=== PATIENT | female | born 1975 ===

== ENCOUNTER 2018-05-26 14:42 | Inpatient (IN) ==
[2018-05-26] MEDS ORDERED: ACETAMINOPHEN 325 MG TABLET PO PRN (17:57)
[2018-05-26] MEDS ORDERED: ONDANSETRON 4 MG/2 ML VIAL IV PRN (17:57)
[2018-05-26] MEDS ORDERED: DEXTROSE 50% 25 GM/50 ML VIAL IV PRN (17:59)
[2018-05-26] MEDS ORDERED: GLUCAGON 1 MG VIAL IM PRN (17:59)
[2018-05-26] MEDS: INSULIN REGULAR 100 UNIT/ML SUBCUT SCH (19:38)
[2018-05-26] MEDS: metroNIDAZOLE INJ 500 MG in PREMIX 1 EACH IV SCH (21:10)
[2018-05-26] MEDS: SODIUM CHLORIDE 0.9% 1,000 ML IV SCH (21:10)
[2018-05-26] MEDS: ATORVASTATIN 40 MG TABLET PO SCH (21:11)
[2018-05-26] MEDS: ENOXAPARIN 30 MG/0.3 ML SYRINGE SUBCUT SCH (21:19)
[2018-05-26 21:33] LABS: Neutrophils,Peritoneal Fluid 89 %
[2018-05-26 21:34] LABS: RBC,Peritoneal Fluid < 1 T/CUMM
[2018-05-26] MEDS: ceFAZolin 1,000 MG VIAL INTRAPERIT SCH (21:51)
[2018-05-27] MEDS: ceFAZolin 1,000 MG VIAL INTRAPERIT SCH ×2 (04:02→22:26)
[2018-05-27] MEDS: INSULIN REGULAR 100 UNIT/ML SUBCUT SCH ×4 (04:07→17:46)
[2018-05-27] MEDS: metroNIDAZOLE INJ 500 MG in PREMIX 1 EACH IV SCH ×3 (04:09→22:18)
[2018-05-27 04:38] LABS: Basophils % 0.3 % (0.0-0.8); Eosinophils # 0.2 10*3/uL (0.0-0.87); Eosinophils % 1.7 % (0.00-10.9); Hematocrit 28.8 VOL% (35.7-47.0); Hemoglobin 9.3 GM/DL (12.0-16.0); Immature Granulocytes % 0.6 %; Immature Granulocytes Absolute 0.06 #; Lymphocytes # 1.5 10*3/uL (1.4-4.0); Lymphocytes % 14.5 % (21.3-54.2); Mean Corpuscular HGB Conc 32.3 GM/DL (32-36); Mean Corpuscular Hemoglobin 29 PG (27-34); Mean Corpuscular Volume 91.1 FL (87-102); Mean Platelet Volume 8.9 FL (9.6-12.0); Monocytes # 0.5 10*3/uL (0.11-0.8); Monocytes % 4.8 % (1.7-12.7); Neutrophils # 8.3 10*3/uL (1.4-7.4); Neutrophils % 78.1 % (38.7-73.9); Platelet Count 282 T/CUMM (130-400); Red Blood Count 3.16 MC/CUMM (3.8-5.5); Red Cell Distribution Width 15.1 % (9.3-17.3); White Blood Count 10.6 T/CUMM (4-12)
[2018-05-27 06:00] LABS: Albumin 1.4 G/DL (3.4-5.0); Bilirubin,Total 0.6 MG/DL (0.2-1.0); Calcium 7.4 MG/DL (8.5-10.1); Osmolality,Calculated 283.8 MOS/KG (273-304); Potassium 3.3 MMOL/L (3.5-5.1); Total Protein 5.5 G/DL (6.4-8.3)
[2018-05-27] MEDS: SODIUM CHLORIDE 0.9% 1,000 ML IV SCH ×3 (06:30→22:18)
[2018-05-27] MEDS: CALCIUM ACETATE 667 MG CAPSULE PO SCH ×3 (09:16→17:45)
[2018-05-27] MEDS: CARVEDILOL 25 MG TABLET PO SCH (09:36)
[2018-05-27] MEDS: MORPHINE 4 MG/1 ML VIAL IV PRN ×2 (11:23→17:42)
[2018-05-27] MEDS: ISOSORBIDE MONONITRATE 30 MG TABLET PO SCH (13:07)
[2018-05-27] MEDS: INSULIN GLARGINE 100 UNIT/ML SUBCUT SCH (13:08)
[2018-05-27] MEDS: amLODIPine 10 MG TABLET PO SCH (13:09)
[2018-05-27] MEDS: ATORVASTATIN 40 MG TABLET PO SCH (22:21)
[2018-05-27] MEDS: ENOXAPARIN 30 MG/0.3 ML SYRINGE SUBCUT SCH (22:24)
[2018-05-28] MEDS: INSULIN REGULAR 100 UNIT/ML SUBCUT SCH ×4 (00:30→17:11)
[2018-05-28 05:00] LABS: Basophils % 0.3 % (0.0-0.8); Eosinophils # 0.2 10*3/uL (0.0-0.87); Eosinophils % 2.6 % (0.00-10.9); Hematocrit 25.7 VOL% (35.7-47.0); Hemoglobin 8.2 GM/DL (12.0-16.0); Immature Granulocytes % 1.8 %; Immature Granulocytes Absolute 0.16 #; Lymphocytes # 1.6 10*3/uL (1.4-4.0); Mean Corpuscular HGB Conc 31.9 GM/DL (32-36); Mean Corpuscular Hemoglobin 30 PG (27-34); Mean Corpuscular Volume 92.4 FL (87-102); Mean Platelet Volume 10.1 FL (9.6-12.0); Monocytes # 0.6 10*3/uL (0.11-0.8); Monocytes % 6.3 % (1.7-12.7); Neutrophils # 6.3 10*3/uL (1.4-7.4); Platelet Count 261 T/CUMM (130-400); Red Blood Count 2.78 MC/CUMM (3.8-5.5); Red Cell Distribution Width 15.1 % (9.3-17.3); White Blood Count 8.9 T/CUMM (4-12)
[2018-05-28 05:06] LABS: Calcium 7.4 MG/DL (8.5-10.1); Osmolality,Calculated 286.7 MOS/KG (273-304); Potassium 2.9 MMOL/L (3.5-5.1)
[2018-05-28] MEDS: metroNIDAZOLE INJ 500 MG in PREMIX 1 EACH IV SCH ×3 (05:26→21:26)
[2018-05-28] MEDS: MORPHINE 4 MG/1 ML VIAL IV PRN ×2 (07:41→21:24)
[2018-05-28] MEDS: SODIUM CHLORIDE 0.9% 1,000 ML IV SCH (07:48)
[2018-05-28] MEDS: ISOSORBIDE MONONITRATE 30 MG TABLET PO SCH (10:15)
[2018-05-28] MEDS: CALCIUM ACETATE 667 MG CAPSULE PO SCH ×3 (10:15→17:01)
[2018-05-28] MEDS: amLODIPine 10 MG TABLET PO SCH (10:15)
[2018-05-28] MEDS: CARVEDILOL 25 MG TABLET PO SCH (10:15)
[2018-05-28] MEDS: INSULIN GLARGINE 100 UNIT/ML SUBCUT SCH (10:16)
[2018-05-28] MEDS: POTASSIUM CHLORIDE 20 MEQ TABLET PO SCH ×2 (15:35→21:30)
[2018-05-28] MEDS: ENOXAPARIN 30 MG/0.3 ML SYRINGE SUBCUT SCH (21:30)
[2018-05-28] MEDS: PSYLLIUM POWDER 3.7 GM/PACK PO SCH (21:30)
[2018-05-28] MEDS: ATORVASTATIN 40 MG TABLET PO SCH (21:31)
[2018-05-28] MEDS: ceFAZolin 1,000 MG VIAL INTRAPERIT SCH (22:34)
[2018-05-29] MEDS: INSULIN REGULAR 100 UNIT/ML SUBCUT SCH ×4 (01:05→22:36)
[2018-05-29] MEDS: SODIUM CHLORIDE 0.9% 1,000 ML IV SCH ×2 (01:10→04:30)
[2018-05-29 04:18] LABS: Basophils % 0.4 % (0.0-0.8); Eosinophils # 0.3 10*3/uL (0.0-0.87); Eosinophils % 3.5 % (0.00-10.9); Hematocrit 28.4 VOL% (35.7-47.0); Immature Granulocytes % 2.4 %; Immature Granulocytes Absolute 0.17 #; Lymphocytes # 1.2 10*3/uL (1.4-4.0); Lymphocytes % 16.7 % (21.3-54.2); Mean Corpuscular HGB Conc 31.7 GM/DL (32-36); Mean Corpuscular Hemoglobin 29 PG (27-34); Mean Corpuscular Volume 91.3 FL (87-102); Mean Platelet Volume 9.6 FL (9.6-12.0); Monocytes # 0.5 10*3/uL (0.11-0.8); Platelet Count 337 T/CUMM (130-400); Red Blood Count 3.11 MC/CUMM (3.8-5.5); Red Cell Distribution Width 15.3 % (9.3-17.3); White Blood Count 7.2 T/CUMM (4-12)
[2018-05-29 04:40] LABS: Alanine Aminotransferase < 6 U/L (13-56); Albumin 1.2 G/DL (3.4-5.0); Alkaline Phosphatase 75 U/L (45-117); Aspartate Amino Transferase 13 U/L (0-37); Blood Urea Nitrogen 25 MG/DL (7-18); Calcium 7.4 MG/DL (8.5-10.1); Glucose 113 MG/DL (74-106); Osmolality,Calculated 283.4 MOS/KG (273-304); Potassium 3.6 MMOL/L (3.5-5.1); Sodium 140 MMOL/L (136-145)
[2018-05-29] MEDS: metroNIDAZOLE INJ 500 MG in PREMIX 1 EACH IV SCH ×3 (04:43→21:54)
[2018-05-29] MEDS: CALCIUM ACETATE 667 MG CAPSULE PO SCH ×3 (08:43→17:21)
[2018-05-29] MEDS: POTASSIUM CHLORIDE 20 MEQ TABLET PO SCH ×3 (08:43→21:57)
[2018-05-29] MEDS: ISOSORBIDE MONONITRATE 30 MG TABLET PO SCH (08:44)
[2018-05-29] MEDS: CARVEDILOL 25 MG TABLET PO SCH (08:44)
[2018-05-29] MEDS: amLODIPine 10 MG TABLET PO SCH (08:44)
[2018-05-29] MEDS: PSYLLIUM POWDER 3.7 GM/PACK PO SCH ×2 (08:53→21:56)
[2018-05-29] MEDS: INSULIN GLARGINE 100 UNIT/ML SUBCUT SCH (08:56)
[2018-05-29] MEDS: ENOXAPARIN 30 MG/0.3 ML SYRINGE SUBCUT SCH (21:56)
[2018-05-29] MEDS: ATORVASTATIN 40 MG TABLET PO SCH (21:57)
[2018-05-29] MEDS: ceFAZolin 1,000 MG VIAL INTRAPERIT SCH (22:29)
[2018-05-30] MEDS: INSULIN REGULAR 100 UNIT/ML SUBCUT SCH ×4 (00:38→18:24)
[2018-05-30 04:47] LABS: Basophils % 0.6 % (0.0-0.8); Eosinophils # 0.2 10*3/uL (0.0-0.87); Eosinophils % 3.5 % (0.00-10.9); Hematocrit 29.3 VOL% (35.7-47.0); Hemoglobin 9.5 GM/DL (12.0-16.0); Immature Granulocytes % 3.9 %; Immature Granulocytes Absolute 0.27 #; Lymphocytes # 1.6 10*3/uL (1.4-4.0); Lymphocytes % 22.8 % (21.3-54.2); Mean Corpuscular HGB Conc 32.4 GM/DL (32-36); Mean Corpuscular Hemoglobin 30 PG (27-34); Mean Corpuscular Volume 91.6 FL (87-102); Mean Platelet Volume 9.1 FL (9.6-12.0); Monocytes # 0.5 10*3/uL (0.11-0.8); Monocytes % 7.8 % (1.7-12.7); Neutrophils # 4.3 10*3/uL (1.4-7.4); Neutrophils % 61.4 % (38.7-73.9); Platelet Count 338 T/CUMM (130-400); Red Cell Distribution Width 15.4 % (9.3-17.3); White Blood Count 6.9 T/CUMM (4-12)
[2018-05-30] MEDS: metroNIDAZOLE INJ 500 MG in PREMIX 1 EACH IV SCH (04:52)
[2018-05-30 05:08] LABS: Alanine Aminotransferase < 6 U/L (13-56); Albumin 1.2 G/DL (3.4-5.0); Alkaline Phosphatase 78 U/L (45-117); Aspartate Amino Transferase 22 U/L (0-37); Bilirubin,Total < 0.39 MG/DL (0.2-1.0); Blood Urea Nitrogen 19 MG/DL (7-18); Glucose 142 MG/DL (74-106); Osmolality,Calculated 280.5 MOS/KG (273-304); Potassium 4.6 MMOL/L (3.5-5.1); Sodium 139 MMOL/L (136-145); Total Protein 5.1 G/DL (6.4-8.3)
[2018-05-30] MEDS: ISOSORBIDE MONONITRATE 30 MG TABLET PO SCH (08:55)
[2018-05-30] MEDS: amLODIPine 10 MG TABLET PO SCH (08:55)
[2018-05-30] MEDS: CARVEDILOL 25 MG TABLET PO SCH (08:55)
[2018-05-30] MEDS: PSYLLIUM POWDER 3.7 GM/PACK PO SCH ×2 (08:55→21:12)
[2018-05-30] MEDS: CALCIUM ACETATE 667 MG CAPSULE PO SCH ×3 (08:55→16:35)
[2018-05-30] MEDS: POTASSIUM CHLORIDE 20 MEQ TABLET PO SCH ×3 (08:55→21:11)
[2018-05-30] MEDS: INSULIN GLARGINE 100 UNIT/ML SUBCUT SCH (08:55)
[2018-05-30] MEDS ORDERED: MAGNESIUM SULF RIDER 4 GM in PREMIX 1 EACH IV ONE (13:00)
[2018-05-30] MEDS ORDERED: SODIUM PHOSPHATE INJ 30 MMOL in SODIUM CHLORIDE 0.9% 250 ML IV ONE (14:00)
[2018-05-30] MEDS: ENOXAPARIN 30 MG/0.3 ML SYRINGE SUBCUT SCH (21:11)
[2018-05-30] MEDS: ATORVASTATIN 40 MG TABLET PO SCH (21:11)
[2018-05-31] MEDS: INSULIN REGULAR 100 UNIT/ML SUBCUT SCH ×3 (00:03→11:44)
[2018-05-31 05:09] LABS: Basophils % 0.6 % (0.0-0.8); Eosinophils # 0.3 10*3/uL (0.0-0.87); Eosinophils % 3.9 % (0.00-10.9); Hematocrit 30.9 VOL% (35.7-47.0); Hemoglobin 9.7 GM/DL (12.0-16.0); Immature Granulocytes % 3.6 %; Immature Granulocytes Absolute 0.23 #; Lymphocytes # 1.9 10*3/uL (1.4-4.0); Mean Corpuscular HGB Conc 31.4 GM/DL (32-36); Mean Corpuscular Hemoglobin 29 PG (27-34); Mean Corpuscular Volume 91.4 FL (87-102); Mean Platelet Volume 9.4 FL (9.6-12.0); Monocytes # 0.6 10*3/uL (0.11-0.8); Monocytes % 9.7 % (1.7-12.7); Neutrophils # 3.4 10*3/uL (1.4-7.4); Neutrophils % 53.2 % (38.7-73.9); Platelet Count 336 T/CUMM (130-400); Red Blood Count 3.38 MC/CUMM (3.8-5.5); Red Cell Distribution Width 15.9 % (9.3-17.3); White Blood Count 6.4 T/CUMM (4-12)
[2018-05-31 05:28] LABS: Alanine Aminotransferase < 9 U/L (13-56); Albumin 1.2 G/DL (3.4-5.0); Alkaline Phosphatase 81 U/L (45-117); Aspartate Amino Transferase 37 U/L (0-37); Blood Urea Nitrogen 14 MG/DL (7-18); Calcium 7.9 MG/DL (8.5-10.1); Glucose 78 MG/DL (74-106); Osmolality,Calculated 276.5 MOS/KG (273-304); Potassium 5.3 MMOL/L (3.5-5.1); Sodium 139 MMOL/L (136-145); Total Protein 5.1 G/DL (6.4-8.3)
[2018-05-31 07:31] VITALS: BP 131/67
[2018-05-31] MEDS: CALCIUM ACETATE 667 MG CAPSULE PO SCH ×2 (08:12→12:01)
[2018-05-31] MEDS: PSYLLIUM POWDER 3.7 GM/PACK PO SCH (08:13)
[2018-05-31] MEDS: amLODIPine 10 MG TABLET PO SCH (08:14)
[2018-05-31] MEDS: INSULIN GLARGINE 100 UNIT/ML SUBCUT SCH (08:14)
[2018-05-31] MEDS: POTASSIUM CHLORIDE 20 MEQ TABLET PO SCH (08:14)
[2018-05-31] MEDS: ISOSORBIDE MONONITRATE 30 MG TABLET PO SCH (08:14)
[2018-05-31] MEDS: CARVEDILOL 25 MG TABLET PO SCH (08:14)
== END 2018-05-31 13:09 | disposition home health service (06) | DRG 919 ==
LOC: N.2E 16:40 → SUATTDRO 16:40 → N.2E 05-31 13:08
PROVIDERS: ADMIT Internal Medicine; ATTEND Internal Medicine